=== PATIENT | male | born 1945 | race Caucasian/White ===

== ENCOUNTER → 2016-06-12 | Outpatient (CLI) | payer OTHER | LOC: GIMAGING 14:27 | PROVIDERS: ATTEND Family Medicine | DX: M51.36 Other intervertebral disc degeneration, lumbar region (principal) | CPT/HCPCS: 72100-PO ==

== ENCOUNTER → 2017-04-17 | Outpatient (CLI) | payer OTHER | LOC: FIMAGING 08:40 | PROVIDERS: ATTEND Internal Medicine | DX: J44.9 Chronic obstructive pulmonary disease, unspecified (principal); I77.9 Disorder of arteries and arterioles, unspecified; I63.9 Cerebral infarction, unspecified; I10 Essential (primary) hypertension ==

== ENCOUNTER → 2017-11-15 | Outpatient (CLI) | payer OTHER | LOC: FIMAGING 08:32 | PROVIDERS: ATTEND Family Medicine | DX: S32.492A Other specified fracture of left acetabulum, initial encounter for closed fracture (principal); S73.192A Other sprain of left hip, initial encounter; M16.0 Bilateral primary osteoarthritis of hip ==